=== PATIENT | male | born 1985 | race Caucasian/White ===

== ENCOUNTER 2024-01-13 10:14 | Emergency (ER) | payer OTHER ==
[~2024-01-13] VITALS: Ht 167.6 cm; Wt 76.3 kg
[2024-01-13 10:15] VITALS: BP 134/78; PULSE 63; TEMP 98; O2SAT 100
[2024-01-13 12:24] VITALS: RESP 18
== END 2024-01-13 12:25 | disposition home or self-care (01) ==
LOC: ER 10:15
DX: M70.21 Olecranon bursitis, right elbow (principal); Y93.89 Activity, other specified; Z88.1 Allergy status to other antibiotic agents
CPT/HCPCS: 20605; 99281; 99283